=== PATIENT | female | born 1995 | race Caucasian/White ===

== ENCOUNTER 2025-05-18 18:33 | Emergency (ER) | payer OTHER, SELFPAY ==
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
--- OUTSIDE RECORDS SUMMARY | 2025-05-17 23:15 | XMS_ITS | Encounter Summary ---
Author Organization [facility] Address [address] [place] [address] Care Team Providers Care Drug Department Worker Name Role Phone Physician, No Pcp Primary Care Provider Unavaila ble Reason for Referral * Consultation (Routine) - Pending Review Specialty Diagnoses / Procedures Referred By Contac t Referred To Contact Gastroenterology Diagnoses Incontinence of feces, unspecified fecal incontinence type Renate Crowder MD [address] [place] [address] Phone: tel: fax: Gastroenterology [facility] 175 [facility] 175 [facility] [address] [place] [address] Phone: tel: fax: Referral ID Status Reason Start Date Expiration Date Visits Requested Visits Authorized [id number] Pending Review Specialty Services Required 05/18/2025 05/18/2026 1 1 Reason for Visit * Reason Comments Foreign Body in Vagina I think I have t oxic shock syndrome, I just got my period and found a tampon that hadn't been previously removed. Encounter Details Date Type Department Care Team (Late st Contact Info) Description 05/17/2025 11:15 PM EDT - 05/18/2025 4:42 AM EDT Emergency [facility] Emergency [address] [place] [id number] Renate Crowder MD [address] [place] [address] Generalized abdominal pain (Primary Dx); Retained foreign body; Rectal itching; Bacterial vaginosis; Incontinence of feces, unspecified fecal incontinence type Discharge Disposition: Home or Self Care Social History Tobacco Use Types Packs/Day Years Used Date Smoking Tobacco: Never Assessed Comments Unknown Sex and Gender Information Value Date Recorded Sex Assigned at Not on file Legal Sex Female 1:51 AM EST Gender Identity Not on file Sexual Orientation Not on file documented as of this encounter Last Filed Vital Signs Vital Sign Reading Time Taken Comments Blood Pressure 117/69 05/18/2025 4:40 AM EDT Pulse 55 05/18/2025 4:40 AM EDT Temperature 36.5 C (97.7 F) 05/18/2025 4:40 AM EDT Respiratory Rate 17 05/18/2025 4:40 AM EDT Oxygen Saturation 100% 05/18/2025 4:40 AM EDT Inhaled Oxygen Concentration - - Weight 63.5 kg (140 lb) 05/17/2025 8:41 PM EDT Height 160 cm (5' 3 ) 05/17/2025 8:41 PM EDT Body Mass Index 24.8 05/17/2025 8:41 PM EDT documented in this encounter Discharge Instructions * Attachments The following attachments cannot be sent through Care Everywhere. * Bacterial Vaginosis (Swedish) * Fecal Incontinence (Swedish) * Anal Itching (Swedish) documented in this encounter Medications at Time of Discharge loratadine (CLARITIN) 10 mg tablet Take 1 tablet (10 mg total) by mouth 1 (one) time each day. 90 each 3 03/31/2025 03/31/2026 metroNIDAZOLE (FLAGYL) 500 mg tablet Take 1 tablet (500 mg total) by mouth every 8 (eight) hours for 10 days. Do not use mouth wash or consume alcohol until 48 hours after last dose 30 tablet 05/18/2025 05/28/2025 documented as of this encounter Ordered Prescriptions Prescription Sig Dispense Quantity Refills Last Filled Start Date End Date metroNIDAZOLE (FLAGYL) 500 mg tablet Take 1 tablet (500 mg total) by mouth every 8 (eight) hours for 10 days. Do not use mouth wash or consume alcohol until 48 hours after last dose 30 tablet 05/18/2025 10/03/202 5 documented in this encounter Discharge Disposition Disposition Code Departure Means Destination Comment s Home or Self Care documented in this encounter Progress Notes * Magaly Cannon RN - 05/17/2025 8:39 PM EDT PT ARRIVES STEADY GAIT, COMPLAINS OF STARTING HER PERIOD TODAY AND DISCOVERED A TAMPON IN FROM LAST[place], PT WAS AT YESTERDAY FOR ANUS ITCHING, WORKED UP FOR STD'S , ALL RESULTS WERE NEGATIVE, PTSTATES SHE BELIEVES SHE HAS TOXIC SHOCK SYNDROME , PT DOES NOT USE CONTROL, USES TOBACCO ANDWEED, PT DENIES N/V/D, PT DENIES OR BM SYMPTOMS, PT DENIES ANY OTHER SYMPTOMS OR COMPLAINTS, * Renate Crowder MD - 05/17/2025 8:35 PM EDT EMERGENCY DEPARTMENT Provider Note Room: [facility]/ Patient: Shanel Francis PCP: No Pcp Physician Patient : 1995 Patient Department: [facility] EMERGENCY [address] [facility] [address] Dept: [phone] Triage Chief Complaint: Foreign Body in Vagina ( I think I have toxic shock syndrome, I just got myperiod and found a tampon that hadn't been previously removed. ) History of Present Illness: 29-year-old female presents with multiple complaints including rectal pain and itching, generalizedabdominal pain, retained foreign body in her vagina for about a month, now with vaginal bleeding because she started her period today. Patient tells me she had a bowel movement recently that felt like it tore open her butt hole which has never been an issue for her before. Since then she has had significant itching and felt like her pelvis was malodorous. Went to urgent care, rectal exam was done and showed significant irritation. She was tested for UTI, BV, chlamydia and gonorrhea, all were negative. Also states that she has been having significant abdominal pain from her lower abdomen radiating up into her back and bilateral flanks. Today she started her menstrual cycle and inserted a tampon. When she removed the tampon, she noted 2 strings and 2 tampons were removed. She had not noticed the string prior to this, had not been aware or having any discomfort or concern that there was foreign body retained in her vagina. Tells me she is very in tune with her body and can tell when jeanna ething is wrong and she is concerned that she has toxic shock syndrome. Also tells me that she has previously had a retained tampon that was left in for 2 weeks that she had not noticed. Patient tells me she used chatGPT to evaluate her symptoms and determined that she was at risk for toxic shock syndrome, presents to the ED to rule this out, demanding a specific test for it. I reassured her that her vitals were within normal limits, she is well-appearing, only has mild leukocytosis, I have low concern for toxic shock syndrome but she is requesting a test for it. Asks me to do a pelvic exam to ensure that all of the tampons are removed. Also states that she is bleeding heavily and that is not normal for her. We discussed that is possible that she had a painful bowel movement and perhaps did not clean all the fecal matter from her anus, which can cause significant itching and irritation. She then brings up concern that she has a tapeworm due to fecal matter being on her face recently after cleaning an RV toilet, thinks this may have caused the rectal itching and pain that she is having. She also normally does not have a malodorous anus and states she could smell it yesterday at urgent care while undergoing a rectal exam. She has not seen a PCP in 6 years because she states that she has tried to seek care from doctors and has not been receiving appropriate care. Tells me she has an appointment with a walk-in PCP through [facility] behavioral health on . She shows me a list of concerns on her phone, tests she would like done, and at the bottom of the page it says to advocate for yourself, be sure that you tell the provider that if they are not takingseriously, they are declining to test you for your concerns. She tells me that she does not like myattitude and feels like I am talking to her like she is stupid and is I am declining to examine her. I told her that I am offering to do a pelvic exam and repeat testing that was done at urgent care,I am not declining. She then states while I do not want you doing the pelvic exam and I want to go find a different doctor. ED Course / Medications given / MDM: See above. Patient discharged. SEE BELOW FOR CONTINUATION OF CARE: ED Course as of 05/18/25434 Mon May 17, [id number] Patient is afebrile, nontachycardic, reassuring vitals [EK] 2319 Auto WBC(!): 11.5 [EK] 2319 Neutrophils Absolute(!): 7.28 [EK] Tue May 18, 2025 0224 At discharge was given list of PCPs to establish care. After extensive discussion with nurse, patient now wanting to undergo pelvic exam and further evaluation [EK] 0317 Speculum exam performed with log snaker nurse Catarina present. [EK] 0318 Pelvic exam performed, please see physical exam. Very low concern for STI at this time given lack of vaginal discharge. Will follow-up on BV testing. Advised that we do not do swabs of the anus,she would need to provide a stool sample to test for ova and parasites, which can be done by PCP. She reports leaking of stool from her anus, I will provide GI referral for stool incontinence. [EK] 0402 hCG Qual: Negative [EK] 0402 Clue Cells, Wet Prep(!): Positive [EK] 0411 Urinalysis with reflex microscopic and culture(!) Low concern for UTI [EK] 0435 Prescribed metronidazole for BV. Discharged home in stable condition with ED return precautions provided. [EK] ED Course User Index [EK] Renate Crowder MD Clinical Impressions as of 05/18/25434 Generalized abdominal pain Retained foreign body Rectal itching Bacterial vaginosis Incontinence of feces, unspecified fecal incontinence type Medications metroNIDAZOLE (FLAGYL) tablet 500 mg (500 mg oral Given 05/18/25414) Clinical Impression(s): Final diagnoses: [R10.84] Generalized abdominal pain [Z18.9] Retained foreign body [L29.0] Rectal itching [N76.0, B96.89] Bacterial vaginosis [R15.9] Incontinence of feces, unspecified fecal incontinence type Disposition: Discharge Physical Examination: Temp: 37.1 ??C (98.8 ??F) BP: 106/77 Heart Rate: 89 Resp: 18 SpO2: 99 % Nursing notes and vitals reviewed. Constitutional: Well-developed, well-nourished, appears comfortable, no distress. Head: Normocephalic and atraumatic. Eyes: Conjunctivae and EOM are normal. Neck: Normal range of motion. No tracheal deviation present. Cardiovascular: Normal rate, extremities warm and well-perfused. Pulmonary/Chest: Effort normal. No respiratory distress. Abdominal: Not distended. : Sensitive exam performed with log snaker RN Catarina present. Normal external genitalia and anus. Mild erythema at dorsal aspect of labial folds. No masses appreciate (pt was concerned about a lump there recently, thinks it has drained). No significant vaginal discharge. Blood in vault, when cleared, no cervical erythema. No foreign body or adnexal tenderness with bimanual exam. No external hemorrhoids or anal fissure appreciated. Musculoskeletal: Normal range of motion. No deformity. Neurological: Alert. GCS 15. Moves all 4 extremities equally and spontaneously. Speaks with clear and fluent speech. Not altered. Lab & Imaging Results: No results found for this or any previous visit (from the past 4464 hours). If an EKG was performed on today's visit and is documented above I independently interpreted/read the EKG as noted above at the time of service as above. Labs Reviewed WET PREP, GENITAL - Abnormal Result Value Clue Cells, Wet Prep Positive (*) Yeast, Wet Prep Negative Trichomonas, Wet Prep Indeterminate BASIC METABOLIC PANEL - Abnormal Sodium 141 Potassium 3.6 Chloride 108 CO2 28 Anion Gap 5 Glucose 106 (*) BUN 8 Creatinine 0.75 eGFR 110 BUN/Creatinine Ratio 10.7 Calcium 8.7 CBC WITH AUTO DIFFERENTIAL - Abnormal WBC 11.5 (*) RBC 4.50 Hemoglobin 11.6 Hematocrit 36.6 MCV 81.7 MCH 25.9 (*) MCHC 31.7 (*) RDW 15.9 (*) Platelets 358 MPV 8.9 NRBC 0.0 NRBC Absolute 0.00 Neutrophils Relative 63.4 Lymphocytes Relative 25.0 Monocytes Relative 9.9 Eosinophils Relative 0.8 Basophils Relative 0.6 Immature Granulocytes Relative 0.3 Neutrophils Absolute 7.28 (*) Lymphocytes Absolute 2.87 Monocytes Absolute 1.14 (*) Eosinophils Absolute 0.09 Basophils Absolute 0.07 Immature Granulocytes Absolute 0.03 URINALYSIS WITH REFLEX MICROSCOPIC AND CULTURE - Abnormal Specific [place] Urine 1.024 pH, Urine 6.5 Leukocytes, Urine Trace (*) Nitrite, Urine Negative Protein, Urine Trace Glucose, Urine Negative Ketones, Urine Trace (*) Urobilinogen, Urine 1.0 Bilirubin, Urine Negative Blood, Urine Moderate (*) RBC, Urine 82.4 (*) WBC, Urine 2.7 Squamous Epithelial, Urine 49 Bacteria, Urine Negative Hyaline Casts, Urine 0.4 Mucus, Urine Large TRICHOMONAS VAGINALIS ANTIGEN - Normal Trichomonas vaginalis Negative HCG, SERUM, QUALITATIVE - Normal hCG Qual Negative CHLAMYDIA TRACHOMATIS AND NEISSERIA GONORRHOEAE MOLECULAR STUDY CULTURE URINE CBC AND DIFFERENTIAL Narrative: The following orders were created for panel order CBC and differential. Procedure Abnormality Status --------- ------ CBC auto differential[[id number]] Abnormal Final result Please view results for these tests on the individual orders. URINALYSIS WITH REFLEX MICROSCOPIC AND CULTURE Narrative: The following orders were created for panel order Urinalysis with reflex microscopic and culture. Procedure Abnormality Status --------- ------ Urinalysis with reflex ...[[id number]] Abnormal Edited Result - FINAL [place] urine culture tube[[id number]] In process Please view results for these tests on the individual orders. No orders to display I personally reviewed the patient's images and agree with radiologist interpretation unless otherwise noted here or in ED course or MDM section Procedures: Procedures Previous Medications LORATADINE (CLARITIN) 10 MG TABLET Take 1 tablet (10 mg total) by mouth 1 (one) time each day. Allergies: Amoxicillin and Penicillins No past medical history on file. No past surgical history on file. Renate Crowder MD 05/18/25 0108 Renate Crowder MD 05/18/25 0437 documented in this encounter Plan of Treatment Upcoming Encounters Date Type Department Care Team (Late st Contact Info) Description 06/01/2025 9:00 AM EDT Treatment [facility] [address] [phone] Deepika Timmons, PT 06/15/2025 10:00 AM EDT [facility] [address] [phone] Deepika Timmons, PT 06/29/2025 10:00 AM EST [address] [address] Deepika Timmons, PT Pending Results Name Type Priority Associated Diagnoses Date /Time Culture urine Microbiology STAT 2:18 AM EDT Scheduled Orders Name Type Priority Associated Diagnoses Orde r Schedule Culture urine Microbiology Routine Once for 1 Occurrences starting 05/18/2025 until 05/18/2025 Scheduled Referrals Name Type Priority Associated Diagnoses Order Schedule Ambulatory referral to Gastroenterology Outpatient Referral Routine Incontinence of feces, unspecified fecal incontinence type 1 Occurrences starting 05/18/2025 until 05/18/2026 documented as of this encounter Procedures Procedure Name Priority Date/Time Associated Diagnosis Comments TRICHOMONAS VAGINALIS ANTIGEN STAT 05/18/2025 3:23 AM EDT CHLAMYDIA TRACHOMATIS AND NEISSERIA GONORRHOEAE PCR STAT 05/18/2025 3:23 AM EDT WET PREP, GENITAL STAT 05/18/2025 3:2 3 AM EDT URINALYSIS WITH REFLEX MICROSCOPIC AND CULTURE STAT 05/18/2025 2:18 AM EDT [place] URINE CULTURE TUBE STAT 05/18/2025 2:18 AM EDT URINALYSIS WITH REFLEX MICROSCOPIC AND CULTURE STAT 05/18/2025 2:18 AM EDT CBC WITH AUTO DIFFERENTIAL STAT 05/17/2025 8:56 PM EDT CBC AND DIFFERENTIAL STAT 05/17/2025 8:56 PM EDT HCG, SERUM, QUALITATIVE STAT Add-on 05/17/2025 8:56 PM EDT BASIC METABOLIC PANEL STAT 05/17/2025 8:56 PM EDT documented in this encounter Results * Trichomonas vaginalis antigen (05/18/2025 3:23 AM EDT) Trichomonas vaginalis Negative Negative 05/18/2025 4:02 AM EDT [facility] Swab Vaginal structure / Unknown Non-blood Collection / Unknown 05/18/2025 3:23 AM EDT 05/18/2025 3:38 AM EDT Renate Crowder MD LAB MICROBIOLOGY - GENERAL ORD ERABLES Final Result Performing Organization Address City/[facility]/ZIP Co de Phone Number [facility] [address] [place] [address], * Chlamydia trachomatis and Neisseria gonorrhoeae molecular study (05/18/2025 3:23 AM EDT) Neisseria gonorrhoeae PCR Negative Negative LAB MOLECULAR DIAGNOSTICS METHOD 05/18/2025 9:19 AM EDT [facility] Chlamydia trachomatis PCR Negative Negative LAB MOLECULAR DIAGNOSTICS METHOD 05/18/2025 9:19 AM EDT [facility] Swab Vaginal structure / Unknown Non-blood Collection / Unknown 05/18/2025 3:23 AM EDT 05/18/2025 3:38 AM EDT Renate Crowder MD LAB MICROBIOLOGY - GENERAL ORD ERABLES Final Result Performing Organization Address City/[facility]/ZIP Co de Phone Number [facility] [address] [place] [address], * (ABNORMAL) Wet prep, genital (05/18/2025 3:23 AM EDT) Clue Cells, Wet Prep Positive(A) Negative 05/18/2025 4:02 AM EDT [facility] Yeast, Wet Prep Negative Negative 05/18/2025 4:02 AM EDT [facility] Trichomonas, Wet Prep Indeterminate Negative 05/18/2025 4:02 AM EDT [facility] Comment:Refer to Trichomonas antigen. Swab Vaginal structure / Unknown Non-blood Collection / Unknown 05/18/2025 3:23 AM EDT 05/18/2025 3:38 AM EDT us Renate Crowder MD LAB MICROBIOLOGY - GENERAL ORD ERABLES Final Result Performing Organization Address [facility]/ZIP Co de Phone Number [facility] [address] [place] [address], [place] [phone] * [place] urine culture tube (05/18/2025 2:18 AM EDT) Pathologist [facility] Extra Tube Hold for add-ons. 05/18/2025 5:01 AM EDT [facility] Comment:Auto resulted. Urine Urine specimen obtained by clean catch procedure / Unknown Non-blood Collection / Unknown 05/18/2025 2:18 AM EDT 05/18/2025 3:36 AM EDT us Renate Crowder MD LAB URINE ORDERABLES Final Res ult Performing Organization Address City/[facility]/ZIP Co de Phone Number [facility] [address] [place] [address], [place] [phone] * (ABNORMAL) Urinalysis with reflex microscopic and culture (05/18/2025 2:18 AM EDT) Specific [place] Urine 1.024 1.003 - 1.030 LAB URINALYSIS - AUTOMATED METHOD 05/18/2025 4:11 AM EDT [facility] pH, Urine 6.5 5.0 - 8.0 pH LAB URINALYSIS - AUTOMATED METHOD 05/18/2025 4:11 AM [facility] Leukocytes, Urine Trace(A) Negative LAB URINALYSIS - AUTOMATED METHOD 05/18/2025 4:11 AM [facility] Nitrite, Urine Negative Negative LAB URINALYSIS - AUTOMATED METHOD 05/18/2025 4:11 AM [facility] Protein, Urine Trace <=Trace mg/dL LAB URINALYSIS - AUTOMATED METHOD 05/18/2025 4:11 AM [facility] Glucose, Urine Negative Negative mg/dL LAB URINALYSIS - AUTOMATED METHOD 05/18/2025 4:11 AM [facility] Ketones, Urine Trace(A) Negative mg/dL LAB URINALYSIS - AUTOMATED METHOD 05/18/2025 4:11 AM [facility] Urobilinogen, Urine 1.0 0.2 - 1.0 mg/dL LAB URINALYSIS - AUTOMATED METHOD 05/18/2025 4:11 AM [facility] Bilirubin, Urine Negative Negative LAB URINALYSIS - AUTOMATED METHOD 05/18/2025 4:11 AM [facility] Blood, Urine Moderate(A) Negative LAB URINALYSIS - AUTOMATED METHOD 05/18/2025 4:11 AM [facility] RBC, Urine 82.4(H) 0 - 4 /HPF LAB URINALYSIS - AUTOMATED METHOD 05/18/2025 4:11 AM [facility] WBC, Urine 2.7 0 - 4 /HPF LAB URINALYSIS - AUTOMATED METHOD 05/18/2025 4:11 AM [facility] Squamous Epithelial, Urine 49 0 - 60 /LPF LAB URINALYSIS - AUTOMATED METHOD 05/18/2025 4:11 AM [facility] Bacteria, Urine Negative Negative /HPF LAB URINALYSIS - AUTOMATED METHOD 05/18/2025 4:11 AM [facility] Hyaline Casts, Urine 0.4 0 - 3 /LPF LAB URINALYSIS - AUTOMATED METHOD 05/18/2025 4:11 AM EDT [facility] Mucus, Urine Large None /HPF 05/18/2025 4:11 AM EDT [facility] Comment:This is an appended report. These results have been appended to a previously final verified report. Urine Urine specimen obtained by clean catch procedure / Unknown Non-blood Collection / Unknown 05/18/2025 2:18 AM EDT 05/18/2025 3:36 AM EDT Renate rCowder MD LAB URINE ORDERABLES Edited Re sult - Final Performing Organization Address [facility]/ZIP Co de Phone Number [facility] [address] [place] [address], [place] [phone] * hCG, serum, qualitative (05/17/2025 8:56 PM EDT) hCG Qual Negative Negative 05/18/2025 3:52 AM EDT [facility] Blood Venous blood specimen / Unknown Venipuncture / Unknown 05/17/2025 8:56 PM EDT 05/17/2025 9:26 PM EDT Renate Crowder MD LAB BLOOD ORDERABLES Final Res ult Performing Organization Address City/[facility]/ZIP Co de Phone Number [facility] [address] [place] [address], [place] [phone] * (ABNORMAL) CBC auto differential (05/17/2025 8:56 PM EDT) WBC 11.5(H) 4.8 - 10.8 K/[facility] LAB HEMETOLOGY METHOD 05/17/2025 9:35 PM EDT [facility] RBC 4.50 3.80 - 4.80 M/mcL LAB HEMETOLOGY METHOD 05/17/2025 9:35 PM EDT [facility] Hemoglobin 11.6 11.5 - 16.0 g/dL LAB HEMETOLOGY METHOD 05/17/2025 9:35 PM EDT [facility] Hematocrit 36.6 35.0 - 47.0 % LAB HEMETOLOGY METHOD 05/17/2025 9:35 PM EDT [facility] MCV 81.7 79.0 - 98.0 FL LAB HEMETOLOGY METHOD 05/17/2025 9:35 PM EDT [facility] MCH 25.9(L) 27.0 - 32.0 pcg LAB HEMETOLOGY METHOD 05/17/2025 9:35 PM EDT [facility] MCHC 31.7(L) 32.0 - 37.0 g/dL LAB HEMETOLOGY METHOD 05/17/2025 9:[facility] RDW 15.9(H) 11.0 - 15.0 % LAB HEMETOLOGY METHOD 05/17/2025 9:35 PM EDT [facility] Platelets 358 130 - 400 K/mcL LAB HEMETOLOGY METHOD 05/17/2025 9:35 PM [facility] MPV 8.9 7.0 - 11.0 FL LAB HEMETOLOGY METHOD 05/17/2025 9:35 PM [facility] NRBC 0.0 <1.0 % LAB HEMETOLOGY METHOD 05/17/2025 9:35 PM EDT [facility] NRBC Absolute 0.00 <0.10 K/mcL LAB HEMETOLOGY METHOD 05/17/2025 9:35 PM [facility] Neutrophils Relative 63.4 % LAB HEMETOLOGY METHOD 05/17/2025 9:35 PM [facility] Lymphocytes Relative 25.0 % LAB HEMETOLOGY METHOD 05/17/2025 9:35 PM EDT [facility] Monocytes Relative 9.9 % LAB HEMETOLOGY METHOD 05/17/2025 9:35 PM EDT [facility] Eosinophils Relative 0.8 % LAB HEMETOLOGY METHOD 05/17/2025 9:35 PM EDT [facility] Basophils Relative 0.6 % LAB HEMETOLOGY METHOD 05/17/2025 9:35 PM EDT [facility] Immature Granulocytes Relative 0.3 % LAB HEMETOLOGY METHOD 05/17/2025 9:35 PM EDT [facility] Neutrophils Absolute 7.28(H) 1.50 - 7.00 K/mcL LAB HEMETOLOGY METHOD 05/17/2025 9:35 PM EDT [facility] Lymphocytes Absolute 2.87 1.00 - 5.00 K/mcL LAB HEMETOLOGY METHOD 05/17/2025 9:35 PM EDT [facility] Monocytes Absolute 1.14(H) 0.20 - 1.00 K/mcL LAB HEMETOLOGY METHOD 05/17/2025 9:35 PM EDT [facility] Eosinophils Absolute 0.09 0.00 - 0.50 K/mcL LAB HEMETOLOGY METHOD 05/17/2025 9:35 PM EDT [facility] Basophils Absolute 0.07 0.00 - 0.20 K/mcL LAB HEMETOLOGY METHOD 05/17/2025 9:35 PM EDT [facility] Immature Granulocytes Absolute 0.03 0.00 - 0.03 K/mcL LAB HEMETOLOGY METHOD 05/17/2025 9:35 PM T [facility] Blood Venous blood specimen / Unknown Venipuncture / Unknown 05/17/2025 8:56 PM EDT 05/17/2025 9:26 PM EDT Charlie Cotton MD LAB BLOOD ORDERABLES Odin beltran Result [facility] [address] [place] [address], * (ABNORMAL) Basic metabolic panel (05/17/2025 8:56 PM EDT) Sodium 141 133 - 145 mmol/L LAB CHEMISTRY METHOD 05/17/2025 9:56 PM EDT [facility] Potassium 3.6 3.5 - 5.5 mmol/L LAB CHEMISTRY METHOD 05/17/2025 9:56 PM [facility] Chloride 108 96 - 110 mmol/L LAB CHEMISTRY METHOD 05/17/2025 9:56 PM [facility] CO2 28 21 - 32 mmol/L LAB CHEMISTRY METHOD 05/17/2025 9:56 PM [facility] Anion Gap 5 3 - 11 LAB CHEMISTRY METHOD 05/17/2025 9:56 PM [facility] Glucose 106(H) 70 - 100 mg/dL LAB CHEMISTRY METHOD 05/17/2025 9:56 PM [facility] BUN 8 5 - 25 mg/dL LAB CHEMISTRY METHOD 05/17/2025 9:56 PM [facility] Creatinine 0.75 0.50 - 1.10 mg/dL LAB CHEMISTRY METHOD 05/17/2025 9:[facility] eGFR 110 >=60 mL/min/1. 73m2 LAB CHEMISTRY METHOD 05/17/2025 9:56 PM [facility] Comment:Calculation based on the Chronic Kidney Disease Epidemiology Collaboration (CKD-EPI) equation refit without adjustment for race. BUN/Creatinine Ratio 10.7 LAB CHEMISTRY METHOD 05/17/2025 9:56 PM [facility] Calcium 8.7 8.5 - 10.5 mg/dL LAB CHEMISTRY METHOD 05/17/2025 9:56 PM [facility] Blood Venous blood specimen / Unknown Venipuncture / Unknown 05/17/2025 8:56 PM EDT 05/17/2025 9:26 PM EDT us Charlie Cotton MD LAB BLOOD ORDERABLES Fin al Result [facility] [address] [place] [address], documented in this encounter Visit Diagnoses Diagnosis Generalized abdominal pain- Primary Abdominal pain, generalized Retained foreign body Rectal itching Pruritus ani Bacterial vaginosis Unspecified vaginitis and vulvovaginitis Incontinence of feces, unspecified fecal incontinence type documented in this encounter Administered Medications Inactive Administered Medications - up to 3 most recent administrations Medication Order MAR Action Action Date Dose Rate Site metroNIDAZOLE (FLAGYL) tablet 500 mg 500 mg, oral, Once, On Sat05/18/25 at 0403, For 1 dose, Indication: Urinary Tract/Genitourinary Given 05/18/2025 4:15 AM EDT 500 mg documented in this encounter Active and Recently Administered Medications Times are shown in EDT. Scheduled Medication Order 05/16/2025 05/17/2025 05/18/2025 metroNIDAZOLE (FLAGYL) tablet 500 mg (COMPLETED) 500 mg, oral, Once, On Sat05/18/25 at 0403, For 1 dose, Indication: Urinary Tract/Genitourinary 0415 (Given - Provid er: Vanessa Busby RN) documented in this encounter Orders Medications Ordered That Arnaldo ht Not Have Been Administered Count Last Ordered Date First Ordered Date metroNIDAZOLE (FLAGYL) tablet 500 mg 1 04/27 documented in this encounter Care Teams Drug Department Worker Relationship Specialty Start Date End Date Physician, No Pcp PCP - General 05/17/25 General Community Primary Care Provider 05/04/25 documented as of this encounter
[2025-05-18 18:58] VITALS: BP 127/85; PULSE 76; RESP 15; TEMP 36.8; O2SAT 99; BMI 26.1
--- NOTE | 2025-05-18 18:59 | ED.GENADULT ---
HPI - General Adult General Chief complaint: General Medical Stated complaint: Pelvic pain (?TSS) Time Seen by Provider: 05/18/25 22:50 Source: patient Mode of arrival: ambulatory Limitations: no limitations History of Present Illness ED Provider: Dr. Pamela Haddad HPI narrative: 29-year-old female with history of chronic BV infections, genital herpes, anxiety and depression, ADHD presenting with pelvic pain, heavy menstruation and perianal itching and pain that is been ongoing for the last several days. Patient admits about a week ago she started having pain around her rectum after a bowel movement where she ?heard something tear?. States that she has been noticing a discharge coming from the area that is foul-smelling. Also developed some pelvic pain but admits that this has been an ongoing issue for her. She was seen at [facility] the emergency department yesterday and diagnosed with bacterial vaginosis. She was prescribed Flagyl but has yet to start this medication. Admits that she does not feel she had a thorough workup there and presents requesting multiple new tests to rule out toxic shock syndrome and PID. States that she is convinced that she has toxic shock syndrome after she found an extra tampon in her vagina yesterday. Admits that she thought that she only put 1 tampon in her vagina but when she pulled to out 2 at the same time ?I thought it might have been in there since my last period four weeks ago. I believe I have toxic shock syndrome because of that reason?. There is no foul smelling discharge. There is no fever. She has no skin rashes. She is having a normal period, that is on time. She does admit that she is ?having heavy vaginal bleeding during her periods ever since she had the COVID vaccine?. Related Data Allergies Allergy/AdvReac Type Severity Reaction Status Date / Time amoxicillin Allergy Diarrhea Verified 05/18/25 19:09 Penicillins Allergy Diarrhea Verified 05/18/25 19:09 Review of Systems Review of Systems: as per HPI, full review of systems performed and negative but for the above mentioned pertinent positives and negatives. [facility] Social History Social History Alcohol intake: current Smoked in Last 30 Days: Yes Use of substances other than those prescribed or required for medical reasons: Yes Substance Use Type: Marijuana Advance Directives: No Advance Directives Information Provided: No Do you have a plan to hurt others: No Plan Physical Exam ED Exam Exam: GENERAL: Anxious, no acute distress. SKIN: Normal skin color for ethnicity, warm, dry, no skin rashes noted. HEENT: Normocephalic, atraumatic, no stridor, posterior oropharynx nonerythematous, poor mohegan dentition, dry mucous membranes, EOMI. NECK: Soft, supple, full ROM, midline structures nontender, no step-offs, no deformities, no lymphadenopathy. CHEST: Heart regular rhythm, no murmurs, symmetric chest rise and fall, no crepitus. PULMONARY: Clear to auscultation bilaterally, no labored breathing, no wheezes/rhales/rhonchi. ABDOMINAL: Soft, nondistended, nontender, positive bowel sounds in all quadrants. : Normal external genitalia, os is closed with dark red blood in the vaginal vault, no lesions in the vagina or on the mons pubis, perianal lesions that are vesicular, discrete, consistent with herpes simplex. MUSCULOSKELETAL: Normal tone, full range of motion, no deformities, no peripheral edema. NEURO: Alert and oriented to person, CN II through XII intact, equal strength and sensation bilateral upper and lower extremities, no focal neurologic deficits. PSYCHIATRIC: Anxious affect, tangential speech. Vital Signs: Vital Signs - 24 hr 05/18/25 18:58 05/18/25 23:03 Temperature 98.2 F 98.5 F Pulse Rate 76 54 Respiratory Rate 15 16 Blood Pressure 127/85 100/63 Pulse Oximetry 99 100 Oxygen Delivery Method Room Air Room Air BMI result Body Mass Index 26.1 Course Course Course Narrative: This is a Rapid Medical Examination (RME) performed by Oralia Garcia PA-C in triage. Full HPI, ROS, assessment and treatment plan per primary provider in the Main ED. Hx: 29 yo F here with concerns of toxic shock syndrome. seen at on Saturday after feeling a ripping sensation with BMs. the following day, she found a secondary tampon in her vagina which had been inserted for an unknown amount of time. she states she was seen in an ED last night for this, asked to be tested for TSS, was told her work up was normal. reports agitation about this and is asking to be tested for TSS. currently on metro for BV. PE/vitals: hyperverbal, appears paranoid Plan: labs, UA Medical Decision Making Medical Decision Making [facility] Narrative: This patient presents today with a chief complaint of pelvic pain, heavy menstruation. Differential diagnosis is broad and would include ovarian torsion, PID, TOA, if ectopic , pyelonephritis, kidney stone, UTI among many others. A broad-based workup based on history and physical exam was obtained. 1:34 AM 05/19/2025 (Dr. Pamela Haddad, D.O.) Patient has no evidence of PID or TSS on exam. She has no rashes, elevated white blood cell count or hypotension to suggest T SS. It is not even clear if she ever had any foreign body in the vagina for any extended period of time. She has no vaginal foreign bodies today. There is no cervical motion tenderness on speculum exam. There is no pus drainage from the cervix. She does have some perianal lesions that I feel are consistent with herpetic lesions however, the patient is insistent that this is not herpes. She has had many herpes outbreaks and does not feel that this is a herpetic outbreak. However, with perianal itching, pain and lesions, herpes would be at the top of my differential. Alternatively, we discussed the possibility of razor burn but she states that she ?has not shaved in that area and only for special occasions?. She is refusing a prescription for Valtrex. States that she has an appointment with her primary care doctor on and would like to follow up at that appointment. Discharged to follow up as an outpatient. All questions were solicited and answered. Differential Diagnosis Differential Diagnoses: The differential diagnosis associated with the presentation includes (As above) Admission/Observation Consideration of admission/observation: Escalation of care including admission/observation considered Lab Data [facility] Lab Attestation statement: I reviewed the patient's lab results. 05/18/25 20:22 05/18/25 20:22 Labs: Lab Results 05/18/25 Range/Units 20:22 WBC 7.6 (4.8-10.8) X10*3/uL RBC 4.42 (4.20-5.50) X10*6/uL Hgb 11.8 L (12.0-16.0) g/dl Hct 35.9 L (37.0-47.0) % MCV 81.2 (80.0-98.0) fL MCH 26.7 L (27.0-33.0) pg MCHC 32.9 (31.0-35.0) g/dl RDW 15.8 (11.0-16.0) % Plt Count 363 (160-400) X10*3/uL MPV 8.9 L (9.4-12.3) fL Immature Gran % (Auto) 0.3 (0.0-0.4) % Neut % (Auto) 54.7 (45-73) % Lymph % (Auto) 34.5 (20-40) % [place] % (Auto) 8.6 (2-11) % Eos % (Auto) 1.2 (0-4) % Baso % (Auto) 0.7 (0-2) % Lymph # (Auto) 2.6 (1.2-4.9) X10*3/uL [place] # (Auto) 0.7 (0.1-1.2) X10*3/uL Eos # (Auto) 0.1 (0.0-0.4) X10*3/uL Baso # (Auto) 0.1 (0.0-0.2) X10*3/uL Abs Immat Gran (auto) 0.02 (0.00-0.03) X10*3/uL Absolute Neuts (auto) 4.1 (2.0-8.3) x10*3/uL Absolute Nucleated RBC 0.000 (0.0-0.012) X10*3/uL Nucleated RBC % (auto) 0.0 (0.0-0.2) /100WBC Sodium 144 (135-145) mmol/L Potassium 3.4 (3.3-5.1) mmol/L Chloride 110 H (96-108) mmol/L Carbon Dioxide 26 (22-29) mmol/L Anion Gap 11 L (12-20) BUN 6 L (9-16) mg/dL Creatinine 0.69 (0.5-1.4) mg/dL Estim Creat Clear Calc 109.5 Estimated GFR > 60 Random Glucose 73 (60-115) mg/dL Calcium 9.0 (8.4-10.2) mg/dL Magnesium 2.2 (1.6-2.6) mg/dL Total Bilirubin 0.1 (0.0-1.0) mg/dL AST 25 (5-31) U/L ALT 22 (0-31) U/L Alkaline Phosphatase 57 (39-117) U/L Total Protein 7.4 (6.5-8.0) g/dL Albumin 4.5 (3.5-5.0) g/dL Lipase 37 (8-78) U/L Urine Color Yellow Urine Appearance Clear Urine pH 5.5 (5.0-9.0) Ur Specific [place] 1.010 (1.005-1.025) Urine Protein Negative (Neg-Trace) mg/dL Urine Glucose (UA) Negative (Negative) mg/dL Urine Ketones Negative (Negative) mg/dL Urine Blood Large (3+) H (Negative) Urine Nitrite Negative (Negative) Ur Leukocyte Esterase Trace H (Negative) Urine RBC >20 H (0-2) /HPF Urine WBC 0-5 (0-5) /HPF Ur Squamous Epith Cells 3-5 (0-2) /HPF Urine Bacteria None Seen (None Seen) Hyaline Casts 0-2 (0-2) /LPF Urine Test NEGATIVE (NEGATIVE) Prescription Management I considered prescription management with: Antiviral Discharge Plan Discharge Clinical Impression: Herpes simplex infection of perianal skin, Menorrhagia with regular cycle Patient Disposition: Home, Self-Care Instructions: Genital Herpes Infection (ED), Menorrhagia (ED) Additional Instructions: Keep your appointment with your primary care doctor this week. You should take the metronidazole (Flagyl) for the BV infection you were diagnosed with at the other emergency department. It is my recommendation that you start Valtrex for herpes. You can follow up with your doctor about this. Return to the emergency department with any new or worsening symptoms including: Worsening pain, fevers greater than 100?, skin rashes, inability to tolerate food or drink, any new symptom that concerns you. Print Language: Italian
[2025-05-18 20:27] LABS: MANUAL DIFF FLAG NO
[2025-05-18 20:31] LABS: Appearance Urine Clear; Glucose Urine UA Negative (Negative); PH 5.5 (5.0-9.0); Specific Gravity - Urine 1.010 (1.005-1.025); UMIC TRIGGER UACC YES
[2025-05-18 20:32] LABS: UPreg QC Valid YES
[2025-05-18 20:34] LABS: Hematocrit 35.9 % (37.0-47.0); Hemoglobin 11.8 g/dl (12.0-16.0); Imm Gran Abs Auto 0.02 X10*3/uL (0.00-0.03); Imm Gran Pct Auto 0.3 % (0.0-0.4); Lymphocytes Absolute Auto 2.6 X10*3/uL (1.2-4.9); Mean Corpuscular HGB Conc 32.9 g/dl (31.0-35.0); Mean Corpuscular Hemoglobin 26.7 pg (27.0-33.0); Mean Corpuscular Volume 81.2 fL (80.0-98.0); NRBC Abs Auto 0.000 X10*3/uL (0.0-0.012); NRBC Pct Auto 0.0 /100WBC (0.0-0.2); Platelet Count 363 X10*3/uL (160-400); Red Blood Count 4.42 X10*6/uL (4.20-5.50); White Blood Count 7.6 X10*3/uL (4.8-10.8)
[2025-05-18 20:46] LABS: Alanine Aminotransferase 22 U/L (0-31); Albumin Level 4.5 g/dL (3.5-5.0); Alkaline Phosphatase 57 U/L (39-117); Anion Gap 11 (12-20); Aspartate Amino Transferase 25 U/L (5-31); Blood Urea Nitrogen 6 mg/dL (9-16); Calcium 9.0 mg/dL (8.4-10.2); Carbon Dioxide 26 mmol/L (22-29); Chloride 110 mmol/L (96-108); Creatinine Clr Calc Pharmacy 109.5; Estimated Glomerular Filt Rate > 60; Lipase 37 U/L (8-78); Magnesium 2.2 mg/dL (1.6-2.6); Potassium 3.4 mmol/L (3.3-5.1); Sodium 144 mmol/L (135-145); Total Protein 7.4 g/dL (6.5-8.0)
--- OUTSIDE RECORDS SUMMARY | 2025-05-18 22:54 | XMS_ITS ---
Author Name [facility] Organization Unknown Care Team Organization Name Specialty Phone Email Start Date End [facility] 02/01/2023 04/13/20 24
--- OUTSIDE RECORDS SUMMARY | 2025-05-18 22:54 | XMS_ITS | Patient Health Record ---
Demographics Address [address] [place] [address] Email Address Preferred Language en Marital Status unmarried Restorationism Affiliation Unknown Race White Ethnic Group Not or Lati no Author Organization [facility] Address [address] [place] [id number] Care Team Providers Care Laborer Hoisting Name Role Phone Cliff RIOSLYNSEY Unavailable Allergies Allergen (clinical drug ingredient) Drug/Non Drug Allergy documented on EMR Reaction Allergy Type Onset Date Status amoxicillin Amoxicillin Unknown Drug Allergy Act alvarez Penicillin Unknown Drug Allergy Active Reason For Referral No Information Medications Medication SIG (Take, Route, Fr equency, Duration) Notes Start Date End Date Status Pre- Orally Active Valtrex 500 MG 1 tablet Orally ever y 12 hrs; Duration: 3 days 10/28/2014 Active PrenaPlus 27-1 MG as directed Orally 3 0; Duration: 30 days 05/07/2014 Active Terazol 3 0.8 % 1 application at bed time Vaginal Once a day; Duration: 3 day(s) 08/10/2014 Active Slow Fe 142 (45 Fe) MG 1 tablet Orally O nce a day; Duration: 30 day(s) 09/30/2014 Active Immunizations Vaccine Route Administration Date Status Comme nts Tdap ID Intradermal 10/14/2014 Administered Social History Tobacco Use: Social History Observation Description Date Details (start date - stop date) Never Smoker NA - NA Tobacco Use/Smoking Question Answer Notes Are you a nonsmoker Sexual History Question Answer Notes Had sex in the past 12 months (vaginal, oral, or anal)? Yes with Men only Use protection? No Have you ever had a Sexually transmitted disease ? Yes Problems Problem Type SNOMED Code ICD Code Onset Dates Problem Status W/U Status Risk Notes Problem Patient currently (29974311) state, incidental (V22.2) Active confirmed Plan Of Treatment Pending Test Test Name Order Date AFP QUAD W&I 06/04/2014 US SURVEY 10/28/2014 US, EXTREMITY 08/05/2014 Insurance Providers Payer Name Payer Address Payer Phone Subscriber Number Group Number Insured Name Patient Relationship to Insured Coverage Start Date Coverage End Date /DANE [employer]ARA [employer] [address] [place] [phone] [id number] Shanel Jung Self - patient is the insured [employer] [address] [place] [phone] [id number] Shanel Jung Self - patient is the insured Medical (General) History Medical History History ICD Code PT IS ALLERGIC TO ALL CILLINS Surgical History Surgery Date(Month/Year) wrist surgery Hospitalization History Reason Date(Month/Year) wrist surgery
--- OUTSIDE RECORDS SUMMARY | 2025-05-18 22:54 | XMS_ITS | Patient Health Record ---
Author Organization [facility] Address [address] [place] [address] Support Name Relationship Address Phone Anup Enrique Emergency Contact Unknown Shanel Francis Guarantor Unknown [phone] Allergies Allergen (clinical drug ingredient) Drug/Non Drug Allergy documented on EMR Reaction Allergy Type Onset Date Status penicillin V Penicillin V Potassium swelling, vomiting Drug Allergy Active Reason For Referral No Information Medications Medication SIG (Take, Route, Fr equency, Duration) Notes Start Date End Date Status Loratadine 10 MG 1 tablet Orally Once a day; Duration: 30 day(s) Active Adderall 20 MG 1 tablet Orally Twic e a day; Duration: 30 days 08/01/2020 Active Azelastine HCl 0.15 % 1 spray in each no stril Nasally Twice a day prn; Duration: 30 Active Social History Tobacco Use: Social History Observation Description Date Details (start date - stop date) Current Smoker NA - NA Alcohol Screen Question Answer Notes Did you have a drink contain ing alcohol in the past year? Yes How often did you have a dri nk containing alcohol in the past year? 2 to 3 times a week (3 points) How many drinks did you have on a typical day when you were drinking in the past year? 10 or more drinks (4 points) Points 7 Interpretation Positive Tobacco Use/Smoking Question Answer Notes Patient is a: current smoker How often do you smoke? every day How many cigarettes a day do you smoke? 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) Active confirmed Problem Allergic rhinitis (11325174) Allergic rhinitis, unspecified seasonality, unspecified trigger (J30.9) Active confirmed Plan Of Treatment Pending Test Test Name Order Date Rapid Strep, In Office 03/16/2014 Urinalysis Dipstick w/ Reflex to Micro a nd Culture ([facility]) 10/19/2019 Future Test Test Name Order Date Urinalysis Dipstick w/ Reflex to Micro a nd Culture ([facility]) 10/19/2019 Insurance Providers Payer Name Payer Address Payer Phone Subscriber Number Group Number Insured Name Patient Relationship to Insured Coverage Start Date Coverage End Date o [facility] [address] [place] [address] [phone] [id number] Shanel Francis Self - patient is the insured 7 Medicaid [address] [place] [phone] [id number] standard Shanel Francis Self - patient is the insured [employer] [address] [address] [place] [address] [id number] NOT ELLIG PER PT SL TitoColby ritter Tolu Child - Insured has Financial Responsibility 0 [facility] Student Plan O [address] [place] [address] [phone] [id number] Shanel Francis Self - patient is the insured 8 0 Medical (General) History Medical History History ICD Code Mood disorder F39 Procedural 08/2019 ADD Surgical History Surgery Date(Month/Year) TM tubes as child Right wrist fracture ~ 2007
--- OUTSIDE RECORDS SUMMARY | 2025-05-18 22:54 | XMS_ITS | Clinical Summary ---
Author Organization [facility] Address [address] [place] [address] Care Team Providers Care Ux Interaction Designer Name Role Phone Ann Marie Humphries Primary Care Provider [phone] Allergies Active Allergy Reactions Criticality Noted Date Comments Amoxicillin 11/14/2012 Penicillins Swelling 11/24/2014 Medications ZOVIRAX 5 % cream 0 03/10/2015 Active estradiol (ESTRACE) 0.01 % (0.1 mg/gram) vaginal cream 1 gm per vagina qhs x's 2 weeks then 3 nights weekly 1 Tube 5 04/18/2015 Active norgestimate 0.25 mg-ethinyl estradiol 35 mcg (SPRINTEC, 28,) 0.25-35 mg-mcg per tablet Take 1 tablet by mouth daily. 28 tablet 5 04/10/2016 Active ibuprofen (ADVIL,MOTRIN) 800 MG tablet take 1 tablet by mouth every 8 hours if needed for MILD PAIN 0 05/26/2016 Active lidocaine (XYLOCAINE) 5 % ointmentIndicat ions:Herpes simplex Apply to affected area prn 30 g 06/05/2017 Active valACYclovir (VALTREX) 500 MG tabletIndicatio ns:Herpes simplex One pill by mouth every day 30 tablet 1 06/05/2017 Active metroNIDAZOLE (FLAGYL) 500 MG tablet Take 1 (one) tablet (500 mg total) by mouth every 8 (eight) hours. 21 tablet 08/08/2020 Active nitrofurantoin, macrocrystal-mo nohydrate, (MACROBID) 100 MG capsule Take 1 (one) capsule (100 mg total) by mouth 2 (two) times a day. 10 capsule 08/08/2020 Active Active Problems Problem Noted Date Diagnosed Date Herpes simplex 06/05/2017 Family History Medical History Relation Name Comments Breast cancer Maternal Grandmother Relation Name Status Comments Father Alive Maternal Grandmother Mother Alive Social History Tobacco Use Types Packs/Day Years Used Date Smoking Tobacco: Never Alcohol Use Standard Drinks/Week Comments No 0 (1 standard drink = 0.6 oz pur e alcohol) Comments No Sex and Gender Information Value Date Recorded Sex Assigned at Not on file Legal Sex Female 5:14 AM EST Gender Identity Not on file Sexual Orientation Not on file Last Filed Vital Signs Vital Sign Reading Time Taken Comments Blood Pressure 122/79 08/03/2020 6:41 PM EST Pulse 74 08/03/2020 6:41 PM EST Temperature 37.2 C (99 F) 08/03/2020 6:41 PM EST Respiratory Rate 19 08/03/2020 6:41 PM EST Oxygen Saturation 99% 08/03/2020 6:41 PM EST Inhaled Oxygen Concentration - - Weight 68.5 kg (151 lb) 06/05/2017 1:03 PM EDT Height 160 cm (5' 3 ) 06/05/2017 1:03 PM EDT Body Mass Index 26.75 06/05/2017 1:03 PM EDT Plan of Treatment Not on file Insurance [facility] Care Teams Ux Interaction Designer Relationship Specialty Start Date End Date Ann Marie Humphries DO [address] [place] [phone] PCP - General Family Medicine 07/10/20
--- OUTSIDE RECORDS SUMMARY | 2025-05-18 22:54 | XMS_ITS | Clinical Summary ---
Author Organization [facility] Address [address] [place] [address] Phone Care Team Providers Care Junior Network Administrator Name Role Phone Physician, No Pcp Primary Care Provider Unavaila ble Allergies Active Allergy Reactions Criticality Noted Date Comments Amoxicillin 03/31/2025 Penicillins 03/31/2025 Medications loratadine (CLARITIN) 10 mg tablet Take 1 tablet (10 mg total) by mouth 1 (one) time each day. 90 each 3 5 03/31/20 26 Active metroNIDAZOLE (FLAGYL) 500 mg tablet Take 1 tablet (500 mg total) by mouth every 8 (eight) hours for 10 days. Do not use mouth wash or consume alcohol until 48 hours after last dose 30 tablet 5 05/28/20 25 Active lidocaine (LIDODERM) 5 % patch Apply 1 patch topically 1 (one) time each day. Remove & discard patch within 12 hours or as directed by . 30 each 5 04/30/20 25 Encounters Date Type Department Care Team Description 05/17/2025 11:15 PM EDT - 05/18/2025 4:42 AM EDT Emergency [facility] Emergency [address] [place] [address] Renate Crowder MD Generalized abdominal pain (Primary Dx); Retained foreign body; Rectal itching; Bacterial vaginosis; Incontinence of feces, unspecified fecal incontinence type Discharge Disposition: Home or Self Care 05/17/2025 4:00 PM EDT Evaluation [facility] [address] [phone] Deepika Timmons, PT Neck pain (Primary Dx) 03/31/2025 8:14 PM EDT - 03/31/2025 8:16 PM EDT Emergency [facility] Emergency [address] [place] [phone] Neck pain (Primary Dx) Discharge Disposition: Home or Self Care from Last 3 Months Social History Tobacco Use Types Packs/Day Years [...] Mass Index 24.8 05/17/2025 8:41 PM EDT Plan of Treatment Upcoming Encounters Date Type Department Care Team (Late st Contact Info) Description 06/01/2025 9:00 AM EDT Treatment [facility] [address] [phone] Deepika Timmons, PT 06/15/2025 10:00 AM EDT Treatment [address] [phone] Deepika Timmons, PT 06/29/2025 10:00 AM EST Treatment [address] [phone] Deepika Timmons, PT Health Maintenance Due Date Last Done Comments DTaP,Tdap,and Td Vaccines (1 - Tdap) 2013 Hepatitis B Vaccines (1 of 3 - 19+ 3-dose series) 2013 Cervical Cancer Screening: P ap Smear 2015 Depression Screening 08/26/2024 HIV Screening 04/01/2025 Hepatitis C Screening 04/01/2025 Social Influencers of Health Screening 04/01/2025 COVID-19 Vaccine (3 - 2024-2 6 season) 2025 03/28/2021, 02/28/2021 Influenza Vaccine (#1) 2025 RSV Immunization Adult Patients (1 - 1-dose 75+ series) 2069 HIB Vaccines Aged Out No longer eligi ble based on patient's age to complete this topic HPV Vaccines Aged Out No longer eligi ble based on patient's age to complete this topic Hepatitis A Vaccines Aged Out No long er eligible based on patient's age to complete this topic IPV Vaccines Aged Out No longer eligi ble based on patient's age to complete this topic MMR Vaccines Aged Out No longer eligi ble based on patient's age to complete this topic Meningococcal ACWY Vaccine Aged Out N o longer eligible based on patient's age to complete this topic Meningococcal B Vaccine Aged Out No l onger eligible based on patient's age to complete this topic Pneumococcal Vaccine: Pediatrics (0 to 5 Years) and At-Risk Patients (6 to 49 Years) Aged Out No longer eligible b ased on patient's age to complete this topic RSV Immunization Patients Under 20 months Aged Out No longer eligible b ased on patient's age to complete this topic Varicella Vaccines Aged Out No longer eligible based on patient's age to complete this topic Procedures Procedure Name Priority Date/Time Associated Diagnosis Comments TRICHOMONAS VAGINALIS ANTIGEN STAT 05/18/2025 3:23 AM EDT CHLAMYDIA TRACHOMATIS AND NEISSERIA GONORRHOEAE PCR STAT 05/18/2025 3:23 AM EDT WET PREP, GENITAL STAT 05/18/2025 3:2 3 AM EDT [facility] URINE CULTURE TUBE STAT 05/18/2025 2:18 AM EDT URINALYSIS WITH REFLEX MICROSCOPIC AND CULTURE STAT 05/18/2025 2:18 AM EDT URINALYSIS WITH REFLEX MICROSCOPIC AND CULTURE STAT 05/18/2025 2:18 AM EDT HCG, SERUM, QUALITATIVE STAT Add-on 05/17/2025 8:56 PM EDT CBC WITH AUTO DIFFERENTIAL STAT 05/17/2025 8:56 PM EDT BASIC METABOLIC PANEL STAT 05/17/2025 8:56 PM EDT CBC AND DIFFERENTIAL STAT 05/17/2025 8:56 PM EDT from Last 3 Months Results * Trichomonas vaginalis antigen (05/18/2025 3:23 AM EDT) Trichomonas vaginalis Negative Negative 05/18/2025 4:02 AM EDT [facility] Swab Vaginal structure / Unknown Non-blood Collection / Unknown 05/18/2025 3:23 AM EDT 05/18/2025 3:38 AM EDT Renate Crowder MD LAB MICROBIOLOGY - GENERAL ORD ERABLES Final Result [facility] [address] [place] [address], * Chlamydia trachomatis and Neisseria gonorrhoeae molecular study (05/18/2025 3:23 AM EDT) Neisseria gonorrhoeae PCR Negative Negative LAB MOLECULAR DIAGNOSTICS METHOD 05/18/2025 9:19 AM EDT [facility] Chlamydia trachomatis PCR Negative Negative LAB MOLECULAR DIAGNOSTICS METHOD 05/18/2025 9:19 AM EDT [facility] Swab Vaginal structure / Unknown Non-blood Collection / Unknown 05/18/2025 3:23 AM EDT 05/18/2025 3:38 AM EDT Renate Crowder MD LAB MICROBIOLOGY - GENERAL ORD ERABLES Final Result Performing Organization Address [facility]/ZIP Co de Phone Number [facility] [address] [place] [address], [place] [phone] * (ABNORMAL) Wet prep, genital (05/18/2025 3:23 AM EDT) Clue Cells, Wet Prep Positive(A) Negative 05/18/2025 4:02 AM EDT [facility] Yeast, Wet Prep Negative Negative 05/18/2025 4:02 AM EDT [facility] Trichomonas, Wet Prep Indeterminate Negative 05/18/2025 4:02 AM EDT [facility] Comment:Refer to Trichomonas antigen. Swab Vaginal structure / Unknown Non-blood Collection / Unknown 05/18/2025 3:23 AM EDT 05/18/2025 3:38 AM EDT Renate Crowder MD LAB MICROBIOLOGY - GENERAL ORD ERABLES Final Result Performing Organization Address [facility] de Phone Number [facility] [address] [place] [address], [place] [phone] * (ABNORMAL) Urinalysis with reflex microscopic and culture (05/18/2025 2:18 AM EDT) [facility] Specific [facility]er Urine 1.024 1.003 - 1.030 LAB URINALYSIS - AUTOMATED METHOD 05/18/2025 4:11 AM EDT [facility] pH, Urine 6.5 5.0 - 8.0 pH LAB URINALYSIS - AUTOMATED METHOD 05/18/2025 4:11 AM EDT [facility] Leukocytes, Urine Trace(A) Negative LAB URINALYSIS - AUTOMATED METHOD 05/18/2025 4:11 AM EDT [facility] Nitrite, Urine Negative Negative LAB URINALYSIS - AUTOMATED METHOD 05/18/2025 4:11 AM [facility] Protein, Urine Trace <=Trace mg/dL LAB URINALYSIS - AUTOMATED METHOD 05/18/2025 4:11 AM [facility] Glucose, Urine Negative Negative mg/dL LAB URINALYSIS - AUTOMATED METHOD 05/18/2025 4:11 AM [facility] Ketones, Urine Trace(A) Negative mg/dL LAB URINALYSIS - AUTOMATED METHOD 05/18/2025 4:11 AM [facility] Urobilinogen, Urine 1.0 0.2 - 1.0 mg/dL LAB URINALYSIS - AUTOMATED METHOD 05/18/2025 4:11 AM [facility] Bilirubin, Urine Negative Negative LAB URINALYSIS - AUTOMATED METHOD 05/18/2025 4:11 AM [facility] Blood, Urine Moderate(A) Negative LAB URINALYSIS - AUTOMATED METHOD 05/18/2025 4:11 AM [facility] RBC, Urine 82.4(H) 0 - 4 /HPF LAB URINALYSIS - AUTOMATED METHOD 05/18/2025 4:11 AM [facility] WBC, Urine 2.7 0 - 4 /HPF LAB URINALYSIS - AUTOMATED METHOD 05/18/2025 4:11 AM [facility] Squamous Epithelial, Urine 49 0 - 60 /LPF LAB URINALYSIS - AUTOMATED METHOD 05/18/2025 4:11 AM [facility] Bacteria, Urine Negative Negative /HPF LAB URINALYSIS - AUTOMATED METHOD 05/18/2025 4:11 AM [facility] Hyaline Casts, Urine 0.4 0 - 3 /LPF LAB URINALYSIS - AUTOMATED METHOD 05/18/2025 4:11 AM [facility] Mucus, Urine Large None /HPF 05/18/2025 4:11 AM EDT [facility] Comment:This is an appended report. These results have been appended to a previously final verified report. Urine Urine specimen obtained by clean catch procedure / Unknown Non-blood Collection / Unknown 05/18/2025 2:18 AM EDT 05/18/2025 3:36 AM EDT Renate Crowder MD LAB URINE ORDERABLES Edited Re sult - Final Performing Organization Address [facility]/ZIP Co de Phone Number [facility] [address] [place] [address], [place] [phone] * [facility] urine culture tube (05/18/2025 2:18 AM EDT) Extra Tube Hold for add-ons. 05/18/2025 5:01 AM EDT [facility] Comment:Auto resulted. Urine Urine specimen obtained by clean catch procedure / Unknown Non-blood Collection / Unknown 05/18/2025 2:18 AM EDT 05/18/2025 3:36 AM EDT Renate Crowder MD LAB URINE ORDERABLES Final Res ult Performing Organization Address [facility] Co de Phone Number [facility] [address] [place] [address], [place] [phone] * (ABNORMAL) CBC auto differential (05/17/2025 8:56 PM EDT) WBC 11.5(H) 4.8 - 10.8 K/[facility] HEMETOLOGY METHOD 05/17/2025 9:35 PM EDT [facility] RBC 4.50 3.80 - 4.80 M/[facility] LAB HEMETOLOGY METHOD 05/17/2025 9:35 PM EDT [facility] Hemoglobin 11.6 11.5 - 16.0 g/dL LAB HEMETOLOGY METHOD 05/17/2025 9:35 PM EDT [facility] Hematocrit 36.6 35.0 - 47.0 % LAB HEMETOLOGY METHOD 05/17/2025 9:35 PM EDT [facility] MCV 81.7 79.0 - 98.0 FL LAB HEMETOLOGY METHOD 05/17/2025 9:35 PM EDT [facility] MCH 25.9(L) 27.0 - 32.0 pcg LAB HEMETOLOGY METHOD 05/17/2025 9:35 PM EDT [facility] MCHC 31.7(L) 32.0 - 37.0 g/dL LAB HEMETOLOGY METHOD 05/17/2025 9:35 PM EDT [facility] RDW 15.9(H) 11.0 - 15.0 % LAB HEMETOLOGY METHOD 05/17/2025 9:35 PM EDT [facility] Platelets 358 130 - 400 K/mcL LAB HEMETOLOGY METHOD 05/17/2025 9:35 PM EDT [facility] MPV 8.9 7.0 - 11.0 FL LAB HEMETOLOGY METHOD 05/17/2025 9:35 PM EDT [facility] NRBC 0.0 <1.0 % LAB HEMETOLOGY METHOD 05/17/2025 9:35 PM EDT [facility] NRBC Absolute 0.00 <0.10 K/mcL LAB HEMETOLOGY METHOD 05/17/2025 9:35 PM EDT [facility] Neutrophils Relative 63.4 % LAB HEMETOLOGY METHOD 05/17/2025 9:35 PM EDT [facility] Lymphocytes Relative 25.0 % LAB HEMETOLOGY METHOD 05/17/2025 9:35 PM EDT [facility] Monocytes Relative 9.9 % LAB HEMETOLOGY METHOD 05/17/2025 9:35 PM EDT [facility] Eosinophils Relative 0.8 % LAB HEMETOLOGY METHOD 05/17/2025 9:35 PM EDT [facility] Basophils Relative 0.6 % LAB HEMETOLOGY METHOD 05/17/2025 9:35 PM EDT [facility] Immature Granulocytes Relative 0.3 % LAB HEMETOLOGY METHOD 05/17/2025 9:35 PM EDT [facility] Neutrophils Absolute 7.28(H) 1.50 - 7.00 K/mcL LAB HEMETOLOGY METHOD 05/17/2025 9:35 PM EDT [facility] Lymphocytes Absolute 2.87 1.00 - 5.00 K/mcL LAB HEMETOLOGY METHOD 05/17/2025 9:35 PM EDT [facility] Monocytes Absolute 1.14(H) 0.20 - 1.00 K/mcL LAB HEMETOLOGY METHOD 05/17/2025 9:35 PM EDT [facility] Eosinophils Absolute 0.09 0.00 - 0.50 K/mcL LAB HEMETOLOGY METHOD 05/17/2025 9:35 PM EDT [facility] Basophils Absolute 0.07 0.00 - 0.20 K/mcL LAB HEMETOLOGY METHOD 05/17/2025 9:35 PM EDT [facility] Immature Granulocytes Absolute 0.03 0.00 - 0.03 K/mcL LAB HEMETOLOGY METHOD 05/17/2025 9:35 PM EDT [facility] Blood Venous blood specimen / Unknown Venipuncture / Unknown 05/17/2025 8:56 PM EDT 05/17/2025 9:26 PM EDT us Charlie Cotton MD LAB BLOOD ORDERABLES Fin al Result [facility] [address] [place] [address], [place] [phone] * hCG, serum, qualitative (05/17/2025 8:56 PM EDT) [facility] hCG Qual Negative Negative 05/18/2025 3:52 AM EDT [facility] Blood Venous blood specimen / Unknown Venipuncture / Unknown 05/17/2025 8:56 PM EDT 05/17/2025 9:26 PM EDT us Renate Crowder MD LAB BLOOD ORDERABLES Final Res ult [facility] [address] [place] [address], * (ABNORMAL) Basic metabolic panel (05/17/2025 8:56 PM EDT) [facility] Sodium 141 133 - 145 mmol/L LAB CHEMISTRY METHOD 05/17/2025 9:56 PM [facility] Potassium 3.6 3.5 - 5.5 mmol/L LAB CHEMISTRY METHOD 05/17/2025 9:56 PM [facility] Chloride 108 96 - 110 mmol/L LAB CHEMISTRY METHOD 05/17/2025 9:56 PM [facility] CO2 28 21 - 32 mmol/L LAB CHEMISTRY METHOD 05/17/2025 9:56 PM [facility] Anion Gap 5 3 - 11 LAB CHEMISTRY METHOD 05/17/2025 9:56 PM [facility] Glucose 106(H) 70 - 100 mg/dL LAB CHEMISTRY METHOD 05/17/2025 9:56 PM [facility] BUN 8 5 - 25 mg/dL LAB CHEMISTRY METHOD 05/17/2025 9:56 PM [facility] Creatinine 0.75 0.50 - 1.10 mg/dL LAB CHEMISTRY METHOD 05/17/2025 9:56 PM [facility] eGFR 110 >=60 mL/min/1. 73m2 LAB CHEMISTRY METHOD 05/17/2025 9:56 PM EDT [facility] Comment:Calculation based on the Chronic Kidney Disease Epidemiology Collaboration (CKD-EPI) equation refit without adjustment for race. BUN/Creatinine Ratio 10.7 LAB CHEMISTRY METHOD 05/17/2025 9:56 PM EDT [facility] Calcium 8.7 8.5 - 10.5 mg/dL LAB CHEMISTRY METHOD 05/17/2025 9:56 PM EDT [facility] Blood Venous blood specimen / Unknown Venipuncture / Unknown 05/17/2025 8:56 PM EDT 05/17/2025 9:26 PM EDT Charlie Cotton MD LAB BLOOD ORDERABLES Fin al Result [facility] [address] [place] [address], from Last 3 Months Insurance [employer] Care Teams Junior Network Administrator Relationship Specialty Start Date End Date Physician, No Pcp PCP - General 05/17/25 General Community Primary Care Provider 05/04/25
[2025-05-18 23:03] VITALS: BP 100/63; PULSE 54; RESP 16; TEMP 36.9; O2SAT 100
[2025-05-19 01:58] VITALS: BP 100/63; PULSE 54; RESP 16; TEMP 36.9; O2SAT 100
== END 2025-05-19 01:58 | disposition home or self-care (01) ==
PROVIDERS: Physician Assistant Medical; Emergency Provider Emergency Medicine; PCP Internal Medicine
DX: B00.9 Herpesviral infection, unspecified (principal); R10.2 Pelvic and perineal pain; N92.0 Excessive and frequent menstruation with regular cycle; Z79.899 Other long term (current) drug therapy
CPT/HCPCS: 36415; 80053; 81001; 81025; 83690; 83735; 85025; 99283; 99284